=== PATIENT | female | born 1990 | race African-American/Black ===

== ENCOUNTER 2020-04-20 10:07 | Emergency (ER) | payer OTHER ==
[2020-04-20 11:20] VITALS: O2SAT 98
[2020-04-20 11:22] LABS: Appearance SLIGHTLY CLOUDY (CLEAR); Bacteria RARE /HPF (NEGATIVE); Bilirubin NEGATIVE (NEGATIVE); Blood MODERATE Ery/ul (0-5); Epithelial Cells RARE /HPF (FEW); Glucose NEGATIVE (NEGATIVE); Ketones NEGATIVE (NEGATIVE); Leukocyte Esterase TRACE (NEGATIVE); Mucus SLIGHT /HPF (NEGATIVE); Nitrite NEGATIVE (NEGATIVE); Protein,Urine Dip NEGATIVE (Negative); Specific Gravity 1.021 (1.005-1.025); Urobilinogen NEGATIVE mg/dL (0-1)
[2020-04-20 11:23] LABS: Bacteria Many; Clue Cells Few; Red Blood Cells None Seen; Trichomonas None Seen; White Blood Cells Moderate; Yeast None Seen
[2020-04-20] MEDS ORDERED: Macrobid 100MG Capsule PO ONE (11:28)
[2020-04-20] MEDS ORDERED: Macrobid 100MG Capsule ONE (11:29)
--- NOTE | 2020-04-20 11:32 | ERPHSYRPT ---
- History of Present Illness Time Seen by Provider: 04/20/20 10:40 Source: patient Patient Subjective Stated Complaint: Vaginal Discharge Triage Nursing Assessment: Patient ambulated back to ED and transferred self to bed. Patient A+O X3. Patient's skin pink, warm and dry. Patient complains of vaginal discharge since her period ended 04/14/20. Patient states the discharge is thick, brown and has a foul odor. Patient also complains of itching. Patient denies pain or discomfort or burning, frequency or urgency during urination. Patient states the past few days when she stands she feels a watery substance coming out of vagina. Physician History: Patient is a 29-year-old female presents to our ED for evaluation of vaginal discharge. Patient has been experiencing vaginal discharge for the past 3 to 4 days. She states her last menstrual period was 04/14/2020. Vaginal discharge is described as thick brown discharge with a foul odor. She occasionally feels a watery discharge brown in color as well. Patient is sexually active with one partner. Patient does not believe she has a STI however would like to be checked. Patient denies abdominal pain. No pelvic pain. No cramping. No nausea or vomiting. No diarrhea. No rash. Symptoms are mild to moderate in intensity. No specific worsening or improving factors. Patient is otherwise healthy. She voices no other complaints or concerns at this time. Timing/Duration: day(s) Severity: moderate Modifying Factors: Improves With: nothing Associated Symptoms: denies symptoms Allergies/Adverse Reactions: No Known Drug Allergies Allergy (Unverified 04/20/20 10:26) Hx Influenza Vaccination/Date Given: Yes Hx Pneumococcal Vaccination/Date Given: No Immunizations Up to Date: Yes Travel Risk - International Travel Have you traveled outside of the country in past 3 weeks: No - Coronavirus Screening Are you exhibiting any of the following symptoms?: No Close contact with a COVID-19 positive Pt in past 14-21 Days: No - Review of Systems Constitutional: No Symptoms, No Fever, No Chills Eyes: No Symptoms Ears, Nose, & Throat: No Symptoms Respiratory: No Symptoms, No Cough, No Dyspnea Cardiac: No Symptoms, No Chest Pain, No Edema, No Syncope Abdominal/Gastrointestinal: No Symptoms, No Abdominal Pain, No Nausea, No Vomiting, No Diarrhea Genitourinary Symptoms: No Symptoms, No Dysuria Musculoskeletal: No Symptoms, No Back Pain, No Neck Pain Skin: No Symptoms, No Rash Neurological: No Symptoms, No Dizziness, No Focal Weakness, No Sensory Changes Psychological: No Symptoms Endocrine: No Symptoms Hematologic/Lymphatic: No Symptoms Immunological/Allergic: No Symptoms All Other Systems: Reviewed and Negative - Past Medical History Pertinent Past Medical History: No Neurological History: No Pertinent History ENT History: No Pertinent History Cardiac History: No Pertinent History Respiratory History: No Pertinent History Endocrine Medical History: No Pertinent History Musculoskeletal History: No Pertinent History GI Medical History: No Pertinent History History: No Pertinent History Psycho-Social History: No Pertinent History Female Reproductive Disorders: No Pertinent History - Past Surgical History Past Surgical History: Yes Neuro Surgical History: No Pertinent History Cardiac: No Pertinent History Respiratory: No Pertinent History Gastrointestinal: No Pertinent History Genitourinary: No Pertinent History Musculoskeletal: No Pertinent History Female Surgical History: No Pertinent History Other Surgical History: Thoracotomy - Social History Smoking Status: Never smoker Exposure to second hand smoke: No Drug Use: none Patient Lives Alone: No - Female History Hx Last Menstrual Period: April 10, 2020 Hx Now: No - Nursing Vital Signs Nursing Vital Signs: Initial Vital Signs Temperature 98.8 F 04/20/20 10:26 Pulse Rate 76 04/20/20 10:26 Respiratory Rate 18 04/20/20 10:26 Blood Pressure 128/83 04/20/20 10:26 O2 Sat by Pulse Oximetry 96 04/20/20 10:26 Pain Scale Pain Intensity 0 - Physical Exam General Appearance: no apparent distress, alert Eye Exam: PERRL/EOMI, eyes nml inspection Ears, Nose, Throat Exam: normal ENT inspection, TMs normal, pharynx normal, moist mucous membranes Neck Exam: normal inspection, non-tender, supple, full range of motion Respiratory Exam: normal breath sounds, lungs clear, No respiratory distress Cardiovascular Exam: regular rate/rhythm, normal heart sounds, normal peripheral pulses Gastrointestinal/Abdomen Exam: soft, normal bowel sounds, No tenderness, No mass Pelvic Exam: normal external exam, vaginal discharge, other (Exam revealed a retained tampon which patient states may have been and since 15 April. There was a brownish discharge as well. No CMT. No open or draining lesions. No adnexal tenderness or masses observed. Cervical os closed.), No adnexal tenderness, No adnexal mass, No cervical motion tenderness Back Exam: normal inspection, normal range of motion, No CVA tenderness, No vertebral tenderness Extremity Exam: normal inspection, normal range of motion, pelvis stable Neurologic Exam: alert, oriented x 3, cooperative, normal mood/affect, sensation nml, No motor deficits Skin Exam: normal color, warm, dry, No rash Lymphatic Exam: No adenopathy SpO2 Interpretation: normal SpO2: 98 O2 Delivery: Room Air - Course Nursing assessment & vital signs reviewed: Yes Ordered Tests: Active Orders 24 hr Category Date Time Status CULTURE,URINE Stat Lab 04/20/20 11:16 Received HCG,QUALITATIVE URINE Stat Lab 04/20/20 10:52 Completed UA W/RFX UR CULTURE Stat Lab 04/20/20 11:16 Completed Wet Prep Stat Lab 04/20/20 11:16 Completed Medication Summary Discontinued Medications Generic Name Dose Route Start Last Admin Trade Name Freq PRN Reason Stop Dose Admin Nitrofurantoin Macrocrystals 100 mg 04/20/20 11:28 04/20/20 11:30 Macrobid 100mg Capsule PO 04/20/20 11:29 100 mg STAT ONE Administration Nitrofurantoin Macrocrystals Confirm 04/20/20 11:29 Macrobid 100mg Capsule Administered 04/20/20 11:30 Dose 100 mg .ROUTE .STChipolo-MED ONE Lab/Rad Data: Laboratory Results 04/20/20 04/20/20 Range/Units 11:16 10:52 Urine Color YELLOW (YELLOW) Urine Appearance SLIGHTLY CLOUDY (CLEAR) Urine pH 6.0 (5-6) Ur Specific [place] 1.021 (1.005-1.025) Urine Protein NEGATIVE (Negative) Urine Ketones NEGATIVE (NEGATIVE) Urine Blood MODERATE (0-5) Lew/ul Urine Nitrite NEGATIVE (NEGATIVE) Urine Bilirubin NEGATIVE (NEGATIVE) Urine Urobilinogen NEGATIVE (0-1) mg/dL Ur Leukocyte Esterase TRACE (NEGATIVE) Urine WBC (Auto) 11-15 (0-5) /HPF Urine RBC (Auto) 3-5 (0-2) /HPF U Epithel Cells (Auto) RARE (FEW) /HPF Urine Bacteria (Auto) RARE (NEGATIVE) /HPF Urine Mucus (Auto) SLIGHT (NEGATIVE) /HPF Urine Culture Reflexed YES (NO) Urine Glucose NEGATIVE (NEGATIVE) mg/dL Urine HCG, Qual NEGATIVE (Negative) WBC (Wet Prep) Moderate RBC (Wet Prep) None Seen Epi Cells (Wet Prep) Few Bacteria (Wet Prep) Many Clue Cells (Wet Prep) Few Trichomonas (Wet Prep) None Seen Budding Yeast (Wet Prp) None Seen - Progress Progress: improved Progress Note: 04/20/20 11:57 Evaluation reveals retained vaginal foreign body which appears to be a tampon. UA suggestive of urinary tract infection. Patient received a dose of Macrobid in our ED. A prescription for the same was transmitted to patient's pharmacy. Wet mount significant for clue cells. A prescription for Flagyl was forwarded the patient's pharmacy. GC chlamydia negative. Patient voices no other complaints or concerns at this time. She agrees to follow-up with her primary care doctor within 48 hours for reevaluation. Counseled pt/family regarding: lab results, diagnosis, need for follow-up - Departure Departure Disposition: Home Clinical Impression: UTI (urinary tract infection), Vaginal foreign body, Microscopic hematuria, Bacterial vaginosis Condition: Stable Critical Care Time: No Referrals: MEENA MAI [Primary Care Provider] - Additional Instructions: Discharge/Care Plan Anai Bahena was seen on 04/20/20 in the Emergency Room. The patient was counseled regarding Diagnosis,Lab results, Imaging studies, need for follow up and when to return to the Emergency Room. Prescriptions given: Discharge Note I have spoken with the patient and/or caregivers. I have explained the patient's condition, diagnosis and treatment plan based on the information available to me at this time. I have answered the patient's and/or caregiver's questions and addressed any concerns. The patient and/or caregivers have as good understanding of the patient's diagnosis, condition and treatment plan as can be expected at this point. The vital signs have been stable. The patient's condition is stable and appropriate for discharge from the emergency department. The patient will pursue further outpatient evaluation with the primary care physician or other designated or consulting physician as outlined in the discharge instructions. The patient and/or caregivers are agreeable to this plan of care and follow-up instructions have been explained in detail. The patient and/or caregivers have received these instruction. The patient/and or caregivers are aware that any significant change in condition or worsening of symptoms should prompt an immediate return to this or the closest emergency department or call 911. Prescriptions: Metronidazole 500 mg [Flagyl 500 MG] 500 mg PO BID 7 Days #14 tablet Nitrofurantoin Macro 100 mg [Macrobid 100MG Capsule] 100 mg PO BID 7 Days #14 cap
[2020-04-20 12:03] VITALS: BP 121/71; PULSE 70
[2020-04-20 12:46] LABS: CHLAMYDIA DNA NOT DETECTED (NEGATIVE); GC DNA Probe NOT DETECTED (NEGATIVE)
== END 2020-04-20 12:15 | disposition home or self-care (01) ==
LOC: ED 10:07
DX: N39.0 Urinary tract infection, site not specified (principal); T19.2XXA Foreign body in vulva and vagina, initial encounter; R31.29 Other microscopic hematuria; N76.0 Acute vaginitis; B96.89 Other specified bacterial agents as the cause of diseases classified elsewhere
CPT/HCPCS: 81001; 84703; 87086; 87210; 87491; 87591; 99283; A9270-GY